=== PATIENT | female | born 1995 | race Caucasian/White ===

== ENCOUNTER → 2020-04-09 | Outpatient (CLI) | payer MEDICAID | END | disposition home or self-care (01) | LOC: STAR 15:52 | PROVIDERS: ATTEND Obstetrics & Gynecology | DX: Z20.828 Contact with and (suspected) exposure to other viral communicable diseases (principal) | CPT/HCPCS: 87635 ==

== ENCOUNTER 2020-04-14 06:06 | Inpatient (IN) | payer MEDICAID ==
[~2020-04-14] VITALS: Ht 167.6 cm; Wt 90.5 kg
[~2020-04-14 06:06] MED LIST: D5%-LACTATED RINGERS 1,000 ML IV SCH; FENTANYL PF 100 MCG/2ML IV PRN; LACTATED RINGERS 1,000 ML IV SCH; METOCLOPRAMIDE 5 MG/ML, 2ML IVPush PRN; ONDANSETRON 2MG/ML, 2ML IVPush PRN; OXYTOCIN 30U/ 0.9% NaCL 500ML 500 ML IV ONE; OXYTOCIN 30U/ 0.9% NaCL 500ML 500 ML IV PRN; TERBUTALINE 1 MG/ML, 1ML IVPush PRN; TERBUTALINE 1 MG/ML, 1ML SQ PRN
[2020-04-14] MEDS ORDERED: LIDOCAINE 1%, 20ML ONE (06:08)
[2020-04-14] MEDS ORDERED: TERBUTALINE 1 MG/ML, 1ML ONE (06:08)
[2020-04-14] MEDS ORDERED: OXYTOCIN 30U/ 0.9% NaCL 500ML 500 ML ONE (06:08)
[2020-04-14] MEDS ORDERED: NEWBORN KIT ONE (06:08)
[2020-04-14] MEDS ORDERED: MISOPROSTOL 200 MCG TABLET ONE (06:09)
[2020-04-14 06:30] LABS: BASOPHILS % (AUTO) 1 % (0-1); EOSINOPHILS % (AUTO) 1 % (1-7); LYMPHOCYTES % (AUTO) 19 % (22-44); MD NO; MEAN CORPUSCULAR HEMOGLOBIN 27.3 pg (27.0-34.8); MEAN CORPUSCULAR HGB CONC 32.9 g/dL (32.4-35.8); MEAN PLATELET VOLUME 8.4 fL (7.4-10.4); MONOCYTES % (AUTO) 7 % (2-9); NEUTROPHILS % (AUTO) 73 % (42-75); PLATELET COUNT 193 x10^3/uL (130-400); RED CELL DISTRIBUTION WIDTH 15.4 % (9.6-15.2)
[2020-04-14] MEDS ORDERED: PREN1TAB79 PO (06:45)
[2020-04-14] MEDS ORDERED: FLUO20TA PO (06:45)
[2020-04-14 06:46] VITALS: BP 133/90
[2020-04-14 08:08] LABS: AMPHETAMINE SCREEN, URINE Negative (Negative); BARBITURATE SCREEN, URINE Negative (Negative); BENZODIAZEPINE SCREEN, URINE Negative (Negative); CANNABINOID SCREEN, URINE Positive (Negative); COCAINE SCREEN, URINE Negative (Negative); METHADONE SCREEN, URINE Negative (Negative); OPIATE SCREEN, URINE Negative (Negative)
[2020-04-14] MEDS ORDERED: FENTANYL/BUPIV./NS/PF 250 ML EPIDCONT SCH (08:30)
[2020-04-14] MEDS ORDERED: NALOXONE 0.4 MG/ML, 1ML IVPush PRN (08:30)
[2020-04-14] MEDS ORDERED: EPHEDRINE 50 MG/ML, 1ML IVPush PRN (08:30)
[2020-04-14] MEDS ORDERED: LACTATED RINGERS 1,000 ML IVBOLUS PRN (08:30)
[2020-04-14] MEDS ORDERED: FENTANYL PF 100 MCG/2ML ONE ×2 (11:11→12:49)
[2020-04-14] MEDS: FENTANYL PF 100 MCG/2ML IVPush PRN ×2 (11:14→12:54)
[2020-04-14] MEDS: LACTATED RINGERS 1,000 ML IV SCH ×2 (13:11→16:30)
[2020-04-14] MEDS ORDERED: DOCUSATE 100 MG CAPSULE PO PRN (14:30)
[2020-04-14] MEDS ORDERED: METHYLERGONOVINE 0.2 MG/ML IM PRN (14:30)
[2020-04-14] MEDS ORDERED: ONDANSETRON 2MG/ML, 2ML IV PRN (14:30)
[2020-04-14] MEDS ORDERED: OXYTOCIN 10 UNITS/ML, 1ML IM PRN (14:30)
[2020-04-14] MEDS ORDERED: MISOPROSTOL 200 MCG TABLET PR PRN (14:30)
[2020-04-14] MEDS: OXYTOCIN 30U/ 0.9% NaCL 500ML 500 ML IV SCH (14:30)
[2020-04-14] MEDS ORDERED: CARBOPROST TROMETHAMINE 250 MCG/ML, 1ML IM PRN (14:30)
[2020-04-14] MEDS ORDERED: HYDROcodone/APAP 5/325 TABLET PO PRN (14:30)
[2020-04-14] MEDS ORDERED: SIMETHICONE 80 MG CHEW TAB PO PRN (14:30)
[2020-04-14] MEDS ORDERED: ACETAMINOPHEN 325 MG TABLET PO PRN (14:30)
[2020-04-14] MEDS: IBUPROFEN 600 MG TABLET PO PRN ×2 (16:14→21:31)
[2020-04-14] MEDS: HYDROcodone/APAP 5/325 TABLET PO PRN ×2 (16:15→21:32)
[2020-04-14 16:25] VITALS: BP 137/78
[2020-04-14] MEDS ORDERED: DIPH,PERTUSS(ACELL),TET VAC/PF NC IM-VACC ONE (18:30)
[2020-04-14] MEDS ORDERED: DIPH,PERTUSS(ACELL),TET VAC/PF NC IM-VACC PRN (19:00)
[2020-04-14 20:00] VITALS: BP 113/69
[2020-04-15] VITALS: BP 110/65
[2020-04-15] MEDS: OXYTOCIN 30U/ 0.9% NaCL 500ML 500 ML IV SCH ×2 (00:30→10:30)
[2020-04-15 04:30] VITALS: BP 125/77
[2020-04-15] MEDS: IBUPROFEN 600 MG TABLET PO PRN ×2 (04:40→11:44)
[2020-04-15 05:31] LABS: BASOPHILS % (AUTO) 1 % (0-1); EOSINOPHILS % (AUTO) 1 % (1-7); LYMPHOCYTES % (AUTO) 22 % (22-44); MEAN CORPUSCULAR HEMOGLOBIN 27.2 pg (27.0-34.8); MEAN CORPUSCULAR HGB CONC 32.9 g/dL (32.4-35.8); MEAN PLATELET VOLUME 8.3 fL (7.4-10.4); MONOCYTES % (AUTO) 9 % (2-9); NEUTROPHILS % (AUTO) 67 % (42-75); PLATELET COUNT 147 x10^3/uL (130-400); RED BLOOD COUNT 3.86 x10^6/uL (3.82-5.3); RED CELL DISTRIBUTION WIDTH 15.6 % (9.6-15.2)
[2020-04-15 05:38] LABS: MD NO
[2020-04-15 07:45] VITALS: BP 110/71
[2020-04-15] MEDS: HYDROcodone/APAP 5/325 TABLET PO PRN ×2 (07:49→15:40)
[2020-04-15] MEDS ORDERED: PRENATAL VIT/IRON/FA 1 EACH TABLET PO SCH (09:00)
[2020-04-15] MEDS ORDERED: IBUP-1222 PO (14:01)
[2020-04-15] MEDS ORDERED: HYDR-3240 PO (14:01)
[2020-04-15] MEDS ORDERED: SENN-92 PO (14:02)
[2020-04-15] MEDS ORDERED: FERR324T18 PO (14:03)
== END 2020-04-15 15:45 | disposition home or self-care (01) | DRG 560 ==
LOC: LDIP 06:06 → 2NW 16:05
PROVIDERS: ADMIT Obstetrics & Gynecology; ATTEND Obstetrics & Gynecology
PROC: 10E0XZZ Delivery of Products of Conception, External Approach (ICD-10-PCS; principal; 2020-04-14)
DX: O80 Encounter for full-term uncomplicated delivery (principal); Z3A.39 39 weeks gestation of pregnancy; Z20.828 Contact with and (suspected) exposure to other viral communicable diseases; Z37.0 Single live birth
CPT/HCPCS: 36415; 80307; 82803; 85025; 86592; 86850; 86900; 87635; 87806; 90715; G0378; J3010; G0475; J2590; J7120